=== PATIENT | female | born 1945 | race Caucasian/White ===

== ENCOUNTER → 2016-10-05 | Outpatient (CLI) | payer OTHER ==
[~2016-10-05] MED LIST: ACTOS PO; AVAPRO PO; CALCIUM 500 + D1 TAB PO; MULTI-VITAMIN1 TAB PO; SULAR PO; ZOCOR PO; ZYRTEC PO; [UNRECOGNIZED DRUG - OTHER]
--- NOTE | ~2016-10-05 | MY11 ---
[facility] A Service of [facility] RADIOLOGY TEXT RESULTS PATIENT: JANICE GARG LOCATION: [facility] : 45 UNIT #: [id number] AGE: [address]: Álvaro Ramon MD SEX: F ORDER DR: [id number] [facility] [address] [place], [place] [address] [id number] O MR#: [id number] Acc #: [id number] NAME: JANICE GARG : 1945 SEX: F STUDY DATE/TIME: 10/05/2016 10:03 UNIT: [facility] ROOM: STUDY DESCRIPTION: MY Mammogram Screening [facility] Attending Physician: Álvaro Ramon M.D. Referring Physician: Álvaro Ramon M.D. Ordering Physician: Álvaro Ramon M.D. Primary Care Physician: Álvaro Ramon M.D. MEDICAL IMAGING REPORT This report is preliminary unless electronic signature is present EXAM Digital screening mammogram 10/05/2016. HISTORY 71-year-old woman; positive family history, grandmother. Prior excisional biopsy left breast. Annual screening. COMPARISON Comparison mammograms date to 08/05/2007, with most recent 09/30/2015. FINDINGS Digital imaging of each breast was completed utilizing screening protocol. Biopsy marker was placed, left breast. Review includes FDA-approved CAD device. The breast parenchyma is partially fatty replaced. Subareolar duct prominence bilaterally is again noted. Occasional benign calcifications present with vascular calcification present. I see no suspicious mass. There are no interval occurring microcalcifications and no suspicious architectural deformity. IMPRESSION Benign mammogram. Annual screening recommended. Patients over the age of 40 are entered into a reminder system with target due date for the next mammogram. A result letter will also be sent to the patient. BIRADS: 2 Benign finding. Dictated by... David Vo M.D. [facility] A Service of [facility] RADIOLOGY TEXT RESULTS PATIENT: JANICE GARG LOCATION: [facility] : 45 UNIT #: [id number] AGE: [address]: Álvaro Ramon MD SEX: F ORDER DR: THIS IS AN ELECTRONICALLY VERIFIED REPORT David Vo M.D. at 10/05/2016 2:39 PM Tamara TD: 10/05/2016 11:47 JOB #: [id number] MEDICAL IMAGING REPORT Page 1 of 1 COPY
== END | disposition home or self-care (01) ==
LOC: CWCC 10-04 10:30
DX: Z12.31 Encounter for screening mammogram for malignant neoplasm of breast (principal); Z80.3 Family history of malignant neoplasm of breast; Z98.890 Other specified postprocedural states
CPT/HCPCS: G0202